=== PATIENT | male | born 1970 | race Caucasian/White ===

== ENCOUNTER 2016-09-24 15:13 | Inpatient (IN) | payer MEDICARE, OTHER ==
--- NOTE | ~2016-09-24 | HP ---
History And Physical [place] [id number] [facility] [place]. [address] NAME: OSVALDO ZULUAGA : 68 STATUS : ADM IN LOCATED WITHIN [facility]#: [id number] AGE: 46 ADM/REG DATE : 09/24/16 MR#: [id number] REPORT SERV DATE: 09/24/16 DICTATED BY: ERASMO CRUZ DATE: 09/24/16 REPORT STATUS : Draft TRANSCRIBED BY: MODL DATE: 09/24/16 DATE OF ADMISSION: 09/24/2016 REASON FOR ADMISSION: Transfer from [facility] for transesophageal echocardiogram. Please see scribed progress notes in the chart as well for an outline of his many previous procedures and surgical history. HISTORY OF PRESENT ILLNESS: Mr. Zuluaga is an unfortunate 46-year-old man with multiple medical problems, most of which are related to his spina bifida and musculoskeletal abnormalities related to that. He had been in his usual state of health, doing fairly well when he developed sudden shortness of breath and pleuritic-type chest pain, which was posterior, quite significant and associated with dyspnea. He was found to be febrile, hypotensive, ended up having to be intubated, placed on pressors and stabilized at [place], and had an abnormal surface echocardiogram which will be discussed below. PAST MEDICAL HISTORY: His past medical history is significant for spina bifida, reactive airways disease, recurrent UTIs, recurrent bronchitis, seizure disorder, paraplegia, neurocognitive impairment, and acid reflux. PAST SURGICAL HISTORY: Quite plentiful and significant for a previous VA shunt in 1968. This was revised by Neurosurgery last year. He has urinary sphincter implant with revision, sacral fissure repair, bladder augmentation, spinal fusions, hernia repair, skin graft, closure of mild meningocele, and several other procedures. REVIEW OF SYSTEMS: We could not obtain review of systems from the patient, though the family is at the bedside and very knowledgeable about his disease processes. PHYSICAL EXAMINATION: GENERAL: He is sedated and intubated on mechanical ventilation. VITAL SIGNS: His vital signs are remarkable for a heart rate between 100 and 110 which is regular, pulse oximetry of 100% on the ventilator, and a blood pressure that has been with a systolic between 70 and 80 on pressors. HEENT: Normocephalic and atraumatic. NECK: Supple. No lymphadenopathy and no JVD. CHEST: His chest is asymmetrical with kyphoscoliosis and increased AP diameter. Respiratory has coarse breath sounds. CARDIOVASCULAR: He has S1 and S2, which are regular and tachycardic. ABDOMEN: Benign. EXTREMITIES: He has hypo-developed lower extremities, though no obvious edema, clubbing, or cyanosis. He has a few hyperpigmented lesions one on proximal to his left thumb, one on his hand, and a few on his wrist that are suspicious for Janeway lesions, though nothing on his soles or palms. ASSESSMENT AND PLAN: Concern for endocarditis: The patient had fever, pleuritic-type chest History And Physical [address] [address] NAME: OSVALDO ZULUAGA : 68 STATUS : ADM IN LOCATED WITHIN [facility]#: [id number] AGE: 46 ADM/REG DATE : 09/24/16 MR#: [id number] REPORT SERV DATE: 09/24/16 DICTATED BY: ERASMO CRUZ DATE: 09/24/16 REPORT STATUS : Draft TRANSCRIBED BY: ELISABETH DATE: 09/24/16 pain, concerning for small septic emboli and had an abnormal surface echocardiogram suggesting a tricuspid vegetation. On transesophageal echo, the hyperdense lesion or hyperechoic lesion seems to be at the tip of the VA shunt which seems to freely flow into the right ventricle as well. The valves are not incompetent, not insufficient, the annuli are clear, and there are no other obvious vegetations. We have discussed the case briefly with Cardiology and with Infectious Diseases and the concern is for a clot with infection at the tip of the VA shunt. We have recommended continue with antibiotics continuing stabilization and full support, and we will try and discuss with his Neurosurgeon the possibility of new revision of the shunt or re-evaluation of the shunt. He had a CT scan of the chest yesterday which obviously was not cardiac dedicated, and we can see the trach of the VA shunt and the tip is right at the level of the tricuspid valve, so it is not clear from the CT alone that the shunt is staying in the ventricle though again this was more concerning on the transesophageal echo. Care was discussed as noted above and we will contact Neurosurgery. RYLEY/ELISABETH Erasmo Cruz M.D. / [id number] CC: Nicole Iyer VICKY L
--- NOTE | ~2016-09-24 | DS ---
Discharge Summary [place] [id number] [facility] [place]. [address] NAME: OSVALDO ZULUAGA : 68 STATUS : DIS IN PAT#: [id number] AGE: 46 ADM/REG DATE : 09/24/16 MR#: [id number] REPORT SERV DATE: 10/12/16 DICTATED BY: ERASMO CRUZ DATE: 10/12/16 REPORT STATUS : Draft TRANSCRIBED BY: MODL DATE: 10/12/16 ADMISSION DATE: 09/24/2016 DISCHARGE DATE: 09/25/2016 This will serve as a brief discharge summary for Mr. Zuluaga since his original H and P was within 24 hours of his discharge and since he had detailed progress note from the day of expiration as well as overnight further coverage. CONDITION AT DISCHARGE: . HISTORY OF PRESENT ILLNESS: The patient was an unfortunate 46-year-old man with multiple medical problems, most of which were related to congenital abnormality including spina bifida, hypo development of his lower torso and lower extremities. He was transferred because of sepsis and concern for endocarditis. During evaluation with transesophageal echocardiogram, it was better characterized that rather than a valve vegetation the patient had and abscess at the tip of his EYEDOTTER ventricle to atrial shunt with sepsis syndrome. He developed septic shock requiring high doses of multiple pressors and because of his overall limited performance status and very high procalcitonin and limited overall condition, the family elected to make him a DNR limited stage and when the family arrived, the full support was withdrawn and the patient rapidly once the pressors were decreased. DIAGNOSES AT DISCHARGE: Septic shock, infection of ventricular atrial shunt. RYLEY/ELISABETH Erasmo Cruz M.D. / [id number] CC: Nicole Iyer Vicky L
--- NOTE | ~2016-09-24 | TEE ---
Transesophageal Echocardiogram [facility] [address] [place]. [address] NAME: OSVALDO ZULUAGA : 68 STATUS : ADM IN [facility]#: [id number] AGE: 46 ADM/REG DATE : 09/24/16 MR#: [id number] REPORT SERV DATE: 09/24/16 DICTATED BY: DATE: REPORT STATUS : Draft TRANSCRIBED BY: MODL DATE: 09/24/16 CHIEF COMPLAINT/REASON FOR STUDY: Abnormal transthoracic and cardiac echocardiogram, suspected endocarditis. Written informed consent obtained. Please see chart for documentations. PROCEDURE: The patient was intubated and sedated prior to the procedure for respiratory failure. The esophagus was intubated with two attempts. This was difficult due to small oral posterior pharynx, but completed without complication. FINDINGS: 1. The aortic valve was trileaflet and opened adequately. There was no evidence of aortic valvular insufficiency or vegetation. 2. The left ventricular systolic function was mildly decreased with a calculated ejection fraction of 43%. 3. The right ventricle was dilated with moderately decreased systolic function. There were linear echo densities in the right atrium and right ventricle consistent with a prior history of ventricular atrial shunt; however, the tip of the shunt catheter was clearly located within the right ventricle. There was a large freely mobile echodensity at the tip of the shunt catheter measuring 0.7 x 0.2 cm in greatest dimension likely consistent with vegetation; however, thrombus could not be excluded. The right atrium and right ventricle were dilated. There was moderately decreased right ventricular systolic function. 4. The mitral valve was interrogated at multiple levels and depths. There was no evidence of mitral valvular regurgitation or vegetations. 5. The tricuspid valve was difficult to fully visualize. No clear vegetations were visualized on the tricuspid valve; however, the shunt catheter clearly had vegetations versus thrombus located both in the right atrium and right ventricle and as such, tricuspid valve endocarditis cannot be excluded. There was [id number] tricuspid valve regurgitation. 6. No pericardial effusion was noted. IMPRESSION: 1. Mildly decreased left ventricular systolic function with a calculated ejection fraction of 43%. 2. Dilated right-sided chambers with moderate right ventricular systolic function. 3. [id number] tricuspid valvular regurgitation, cannot exclude endocarditis by this study. 4. Freely mobile echo densities on the previously placed ventricular, now right ventricular catheter consistent with vegetation, thrombus could not be excluded. 5. The results of this study were discussed with Dr. Jason Cruz, Critical Care Medicine and family members updated. LGC/MODL Transesophageal Echocardiogram [facility] [address] [place]. [address] NAME: OSVALDO ZULUAGA : 68 STATUS : ADM IN [facility]#: [id number] AGE: 46 ADM/REG DATE : 09/24/16 MR#: [id number] REPORT SERV DATE: 09/24/16 DICTATED BY: DATE: REPORT STATUS : Draft TRANSCRIBED BY: MODL DATE: 09/24/16 Marielos Wolfe M.D. / [id number] CC: Nicole Iyer
[~2016-09-24 15:13] MED LIST: ACET500CAP PO; ADVIL PO; ALBUTEROL0.083 % INH; B-125000 MCG SL; DESITIN TOP; DULERA 200 MCG/13 GM INH; FIBERCON PO; HUMI PO; KEPPRA250 PO; KEPPRA500 PO; MAGOX4 PO; MEDI HONEY TOP; MULTIVIT/MIN PO; NEXIUM40 PO; OCEAN NAS; P20 PO; PB30 PO; PEP20 PO; PHENOBARBITAL 30 MG PO; PROAIR HFA INH; PROBIOTIC PO; PROVENTSOL INH; PROVHFA INH; SURBEX/C1 TAB PO; T PO; TESS PO; VERAMYST27.5 MCG NAS; VITAMIN B PO; VITAMIN D3 OTC PO; VITAMIN D31000 UNIT PO; ZYRTEC ALLGY10 MG PO; [UNRECOGNIZED DRUG - CODE] PO; [UNRECOGNIZED DRUG - OTHER]
[2016-09-24 22:04] LABS: HEMOGLOBIN 9.9 g/dL (13.6-17.8); MEAN CORPUSCULAR HEMOGLOB 32.5 pg (26.0-34.0); MEAN PLATELET VOLUME 10.5 fL (9.2-13.0); RBC DISTRIBUTION WIDTH 13.4 % (12.0-16.0); RED CELL COUNT 3.05 10/6/uL (4.7-6.1); WHITE BLOOD CELLS 16.9 10/3/uL (4.5-10.5)
[2016-09-24 22:11] LABS: HEMATOCRIT 30.2 % (40.0-51.0); MEAN CORPUS HGB CONC 32.8 g/dL (32.0-36.0); PLATELET COUNT 56 10/3/uL (150-400)
[2016-09-24 22:14] LABS: MANUAL DIFF YES %
[2016-09-24 22:20] LABS: BUN (BLOOD UREA NITROGEN) 25 MG/DL (6-23); CHLORIDE, SERUM 97 MMOL/L (96-112); CO2 (CARBON DIOXIDE) 16 MMOL/L (24-34); CREATININE 1.96 MG/DL (0.70-1.30); GFR AFRICAN AMERICAN 46 ML/MIN (>=60); GFR NON AFRICAN AMERICAN 40 ML/MIN (>=60); POTASSIUM, SERUM 4.4 MMOL/L (3.5-5.3)
[2016-09-24 22:21] LABS: GLUCOSE, SERUM 482 MG/DL (60-99); SODIUM, SERUM 128 MMOL/L (135-148)
[2016-09-24 22:23] LABS: BAND NEUTROPHILS 14 %; LYMPHOCYTES 4 %; LYMPHOCYTES ABSOLUTE (CALC) 0.68 10/3/uL (0.67-4.30); MONOCYTES 3 %; MONOCYTES ABSOLUTE (CALC) 0.51 10/3/uL (0.21-1.20); NEUTROPHILS ABSOLUTE (CALC) 15.72 10/3/uL (2.02-8.40); SEGMENTED NEUTROPHIL (0) 79 %; TOTAL NUCLEATED CELLS 100
[2016-09-24 22:24] LABS: RBC MORPHOLOGY NORM (NORMAL)
[2016-09-24 22:26] LABS: CALCIUM IONIZED 3.62 MG/DL (3.80-4.80)
[2016-09-24 22:30] LABS: ALLENS TEST Pos; BE (BASE EXCESS) -15.7 MEQ/L (0 +/- 2.5); CARBOXYHEMOGLOBIN 0.3 % (0-3); HCO3 (ACTUAL BICARBONATE) 11.6 MEQ/L (23-27); HEMOBLOGIN CONTENT 11.1 G/DL (14-18); INSTRUMENT SERIAL # 35151; METHEMOGLOBIN 0.4 % (0-3); MODE PCV; O2 CONTENT 14.8 VOL% (18-24); OPERATOR ID 23712; PCO2 (CO2 TENSION) 32 MMHG (35-45); PO2 (O2 TENSION) 88 MMHG (79-93); SAMPLE Arterial; pH 7.17 (7.37-7.43)
[2016-09-24 22:41] LABS: B NATRIURETIC PEPTIDE (BNP) 1030.9 PG/ML (< 100.0)
[2016-09-25 02:14] LABS: BASOPHILS 0.1 %; BASOPHILS ABSOLUTE 0.01 10/3/uL (0.0-0.16); EOSINOPHILS 0 %; HEMATOCRIT 27.8 % (40.0-51.0); IMMATURE GRANULOCYTES 0.4 %; IMMATURE GRANULOCYTES ABSOLUTE 0.06 10/3/uL (0.0-0.11); LYMPHOCYTES 5.1 %; LYMPHOCYTES ABSOLUTE 0.74 10/3/uL (0.67-4.30); MEAN CORPUS HGB CONC 32.4 g/dL (32.0-36.0); MEAN CORPUSCULAR HEMOGLOB 31.6 pg (26.0-34.0); MEAN CORPUSCULAR VOLUME 97.5 fL (80-100); MEAN PLATELET VOLUME 10.3 fL (9.2-13.0); MONOCYTES ABSOLUTE 0.72 10/3/uL (0.21-1.20); NEUTROPHILS 89.4 %; NEUTROPHILS ABSOLUTE 12.85 10/3/uL (2.02-8.40); RBC DISTRIBUTION WIDTH 13.4 % (12.0-16.0); RED CELL COUNT 2.85 10/6/uL (4.7-6.1); WHITE BLOOD CELLS 14.4 10/3/uL (4.5-10.5)
[2016-09-25 02:15] LABS: MANUAL DIFF NO %; PLATELET COUNT 46 10/3/uL (150-400)
[2016-09-25 02:23] LABS: INTERNATIONAL NORMAL RATI 2.8 UNITS (-)
[2016-09-25 02:24] LABS: FIBRINOGEN 266 MG/DL (230-462); PARTIAL THROMBO TIME 47.7 SEC (22.5-37.2)
[2016-09-25 02:26] LABS: BUN (BLOOD UREA NITROGEN) 26 MG/DL (6-23); CHLORIDE, SERUM 99 MMOL/L (96-112); CREATININE 1.95 MG/DL (0.70-1.30); GFR AFRICAN AMERICAN 46 ML/MIN (>=60); GFR NON AFRICAN AMERICAN 40 ML/MIN (>=60); PHOSPHORUS, SERUM 2.8 MG/DL (2.5-4.5)
[2016-09-25 02:28] LABS: CO2 (CARBON DIOXIDE) 20 MMOL/L (24-34); GLUCOSE, SERUM 366 MG/DL (60-99); SODIUM, SERUM 135 MMOL/L (135-148)
[2016-09-25 02:29] LABS: CALCIUM, SERUM 6.1 MG/DL (8.5-10.4)
[2016-09-25 02:36] LABS: GIANT PLATELET FEW; PLATELET ESTIMATE DEC (ADEQUATE); PROTIME (NOT ORD) 28.9 SEC (12.0-14.5); RBC MORPHOLOGY NORM (NORMAL)
[2016-09-25 02:50] LABS: D-DIMER QUANTITATIVE > 20.00 ug/mLFEU (< 0.50)
[2016-09-25 05:53] LABS: BASOPHILS 0.1 %; BASOPHILS ABSOLUTE 0.01 10/3/uL (0.0-0.16); BUN (BLOOD UREA NITROGEN) 25 MG/DL (6-23); CHLORIDE, SERUM 99 MMOL/L (96-112); CO2 (CARBON DIOXIDE) 19 MMOL/L (24-34); CREATININE 1.76 MG/DL (0.70-1.30); EOSINOPHILS 0 %; GFR AFRICAN AMERICAN 52 ML/MIN (>=60); GFR NON AFRICAN AMERICAN 45 ML/MIN (>=60); HEMOGLOBIN 8.4 g/dL (13.6-17.8); IMMATURE GRANULOCYTES 0.6 %; IMMATURE GRANULOCYTES ABSOLUTE 0.08 10/3/uL (0.0-0.11); LYMPHOCYTES 6.4 %; LYMPHOCYTES ABSOLUTE 0.87 10/3/uL (0.67-4.30); MEAN CORPUS HGB CONC 33.9 g/dL (32.0-36.0); MEAN CORPUSCULAR HEMOGLOB 32.4 pg (26.0-34.0); MEAN CORPUSCULAR VOLUME 95.8 fL (80-100); MEAN PLATELET VOLUME 10.7 fL (9.2-13.0); MONOCYTES 5.4 %; MONOCYTES ABSOLUTE 0.73 10/3/uL (0.21-1.20); NEUTROPHILS 87.5 %; NEUTROPHILS ABSOLUTE 11.87 10/3/uL (2.02-8.40); POTASSIUM, SERUM 3.9 MMOL/L (3.5-5.3); RBC DISTRIBUTION WIDTH 13.2 % (12.0-16.0); RED CELL COUNT 2.59 10/6/uL (4.7-6.1); SODIUM, SERUM 132 MMOL/L (135-148); WHITE BLOOD CELLS 13.6 10/3/uL (4.5-10.5)
[2016-09-25 05:57] LABS: CALCIUM, SERUM 6.4 MG/DL (8.5-10.4); GLUCOSE, SERUM 260 MG/DL (60-99); HEMATOCRIT 24.8 % (40.0-51.0); MANUAL DIFF NO %; PLATELET COUNT 35 10/3/uL (150-400)
[2016-09-25 06:19] LABS: VANCOMYCIN TROUGH 23.2 MCG/ML (10.0-20.0)
[2016-09-25 06:23] LABS: PLATELET ESTIMATE DEC (ADEQUATE); RBC MORPHOLOGY NORM (NORMAL)
[2016-09-25 07:22] LABS: PROCALCITONIN 16.53 ng/mL (<0.5)
[2016-09-25 09:05] LABS: ALKALINE PHOSPHATASE 58 U/L (45-117); BUN (BLOOD UREA NITROGEN) 26 MG/DL (6-23); CHLORIDE, SERUM 98 MMOL/L (96-112); CO2 (CARBON DIOXIDE) 22 MMOL/L (24-34); CREATININE 1.86 MG/DL (0.70-1.30); DIRECT BILIRUBIN 0.2 MG/DL (0.0-0.4); GFR AFRICAN AMERICAN 49 ML/MIN (>=60); GFR NON AFRICAN AMERICAN 42 ML/MIN (>=60); INDIRECT BILIRUBIN(NOT ORDER) 0.4 MG/DL (0.1-0.9); POTASSIUM, SERUM 4.1 MMOL/L (3.5-5.3); SGOT(AST) 9436 U/L (5-40); SGPT(ALT) 4629 U/L (5-65); SODIUM, SERUM 132 MMOL/L (135-148); TOTAL BILIRUBIN 0.6 MG/DL (0-1.2)
[2016-09-25 09:06] LABS: A/G RATIO 0.8 (0.7-1.9); ALBUMIN 2.1 G/DL (3.5-5.0); CALCIUM, SERUM 6.2 MG/DL (8.5-10.4); GLOBULIN 2.8 G/DL (2.5-4.1); GLUCOSE, SERUM 189 MG/DL (60-99); TOTAL PROTEIN 4.9 G/DL (6.0-8.5)
[2016-09-26 10:41] LABS: HEPARIN-INDUCED PLATELET AB POSITIVE (NEGATIVE); HIT PATIENT O.D. 0.525 OD (0.000-0.299)
[2016-10-02 14:33] LABS: UFH LOW DOSE 0.1 IU/ML 0 %RELEASE; UFH LOW DOSE 0.5 IU/ML 0 %RELEASE; UFH SRA RESULT NEGATIVE (NEGATIVE)
[2016-10-02 14:35] LABS: UFH HIGH DOSE 100 IU/ML 0 %RELEASE
== END 2016-09-25 22:06 | disposition expired | DRG 919 ==
LOC: CCU 15:13
PROVIDERS: Internal Medicine Critical Care Medicine; Internal Medicine Pulmonary Disease
DX: T85.79XA Infection and inflammatory reaction due to other internal prosthetic devices, implants and grafts, initial encounter (principal); A41.9 Sepsis, unspecified organism; R65.21 Severe sepsis with septic shock; J96.90 Respiratory failure, unspecified, unspecified whether with hypoxia or hypercapnia; I33.0 Acute and subacute infective endocarditis; J96.01 Acute respiratory failure with hypoxia; I07.1 Rheumatic tricuspid insufficiency; D69.6 Thrombocytopenia, unspecified; N17.9 Acute kidney failure, unspecified; G82.20 Paraplegia, unspecified; Q05.4 Unspecified spina bifida with hydrocephalus; Z51.5 Encounter for palliative care; Q05.9 Spina bifida, unspecified; J45.909 Unspecified asthma, uncomplicated; Z66 Do not resuscitate; G40.409 Other generalized epilepsy and epileptic syndromes, not intractable, without status epilepticus; K21.9 Gastro-esophageal reflux disease without esophagitis; Z98.890 Other specified postprocedural states; Z99.3 Dependence on wheelchair; D64.9 Anemia, unspecified; Z98.2 Presence of cerebrospinal fluid drainage device; I07.9 Rheumatic tricuspid valve disease, unspecified; Z91.040 Latex allergy status; N50.89 Other specified disorders of the male genital organs; G40.909 Epilepsy, unspecified, not intractable, without status epilepticus
CPT/HCPCS: 31720; 36569; 36600; 71010; 71275; 74000; 80048; 80053; 80076; 80185; 80202; 81001; 82009; 82140; 82248; 82330; 82533; 82803; 82805; 82947; 82962; 83605; 83690; 83735; 83880; 84100; 84132; 84145; 84295; 84443; 84484; 85014; 85025; 85049; 85379; 85384; 85610; 85652; 85730; 86022; 86022-59; 86140; 86641; 87040; 87070; 87205; 87449; 87641; 93005; 93306; 93312; 93320; 93325; 94002; 94003; 94640; 94770; 96374; 96375; 99291; 99292; A9270-GY; C1751; J0610; J0692; J1720; J1953; J2370; J2405; J3010; J3370; J3475; P9045; Q2009; Q9967